=== PATIENT | female | born 2000 | race Caucasian/White ===

== ENCOUNTER 2024-09-11 09:54 | Emergency (ER) | payer OTHER ==
[2024-09-11] MEDS: Ondansetron 4 MG/2 ML SDV IVPUSH ONE (10:39)
[2024-09-11] MEDS: Sodium Chloride 0.9% 1,000 ML IV SCH (10:40)
[2024-09-11] MEDS: LORazepam 2 MG/ML SDV IVPUSH ONE (10:40)
[2024-09-11] MEDS: Prochlorperazine 10 MG/2 ML SDV IVPUSH PRN (13:09)
[2024-09-11 13:41] LABS: BLOOD UREA NITROGEN,BUN 16 mg/dL (7-18); CALCIUM 9.1 mg/dL (8.6-10.2); CARBON DIOXIDE,CO2 25 mmol/L (21-32); CHLORIDE,CL 105 mmol/L (100-110); ESTIMATED GFR 80 mL/min (>60); GLUCOSE RANDOM 115 mg/dL (80-116); POTASSIUM,K 3.6 mmol/L (3.5-5.3); SODIUM,NA 141 mmol/L (135-145)
== END 2024-09-11 13:45 | disposition home or self-care (01) ==
LOC: FB.ED 09:54
DX: K52.9 Noninfective gastroenteritis and colitis, unspecified (principal); Z88.1 Allergy status to other antibiotic agents; Z88.8 Allergy status to other drugs, medicaments and biological substances; Z79.899 Other long term (current) drug therapy
CPT/HCPCS: 36415; 80048; 96361; 96374; 96375; 99284; J0780; J2060; J2405; J7030